=== PATIENT | male | born 1950 | race Caucasian/White ===

== ENCOUNTER → 2016-08-07 | Day surgery (SDC) | payer BC, MEDICARE ==
[~2016-08-07] VITALS: Ht 177.8 cm; Wt 75.7 kg
[~2016-08-07] MED LIST: LORTAB PO; NEURONTIN 300300 MG PO; NORVASC 5 MG TAB5 MG PO; PERCOCET 7.5-31 EACH PO; PRINIVIL5 MG PO; PROTONIX40 MG PO
== END | disposition home or self-care (01) ==
LOC: OR 07-31 09:45
PROVIDERS: Orthopaedic Surgery
PROC: 01N50ZZ Release Median Nerve, Open Approach (ICD-10-PCS; principal; 2016-08-07 16:00)
DX: G56.02 Carpal tunnel syndrome, left upper limb (principal); K21.9 Gastro-esophageal reflux disease without esophagitis; M51.36 Other intervertebral disc degeneration, lumbar region; G89.29 Other chronic pain; M10.9 Gout, unspecified; Z90.49 Acquired absence of other specified parts of digestive tract; Z79.891 Long term (current) use of opiate analgesic; Z79.899 Other long term (current) drug therapy
CPT/HCPCS: J0690; J1100; J2250; J2405; J2765; J3010; J7120